=== PATIENT | male | born 1945 | race Caucasian/White ===

== ENCOUNTER → 2021-06-24 | Outpatient (CLI) | payer MEDICARE, OTHER ==
--- NOTE | 2021-06-24 17:07 | Diagnostic Imaging Report ---
INDICATION: Arthritis. COMPARISON: None. FINDINGS: Multiple radiographic views of bilateral wrists were obtained. There are moderate osteoarthritic changes to the 1st carpometacarpal joint space on the left. Note is also made of volar tilt to the lunate on the right. There is also moderate narrowing of the radiocarpal joint space on the right. AP view is suboptimal given obliquity, but there is suggestion of widening of the scapholunate joint space as well. Note is also made of underlying degenerative changes to the lunate. Otherwise, joint spaces are maintained. Osseous structures are intact. There is no acute fracture. No unexpected radiopaque foreign bodies are identified. IMPRESSION: 1. No acute fracture or dislocation of either wrist. 2. Moderate osteoarthritic changes to the left carpometacarpal joint space. 3. 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 Dictated by: Dictated on workstation # [id number]
--- NOTE | 2021-06-24 17:08 | Diagnostic Imaging Report ---
INDICATION: Arthritis. COMPARISON: None FINDINGS: Multiple radiographic views of bilateral hands were obtained. Osseous structures are intact. There is no acute fracture. Note is made of moderate osteoarthritic changes to the 1st carpometacarpal joint space. Mild to moderate osteoarthritic changes are also present involving the 2nd and 3rd metacarpophalangeal joint spaces. Otherwise, joint spaces are maintained. No periarticular erosions are seen. No other lytic or blastic bony lesions are identified. IMPRESSION: 1. No acute fracture or dislocation of either hand. 2. Moderate osteoarthritic changes of the bilateral hands as described above. Dictated by: Dictated on workstation # [id number]
== END ==
LOC: RAD 15:31
PROVIDERS: ATTEND Internal Medicine
DX: M18.0 Bilateral primary osteoarthritis of first carpometacarpal joints (principal); M19.041 Primary osteoarthritis, right hand; M19.042 Primary osteoarthritis, left hand

== ENCOUNTER → 2021-07-19 | Outpatient (CLI) | payer MEDICARE, OTHER | LOC: WOUNDCARE 12:40 | PROVIDERS: ATTEND Family Medicine | DX: S81.801A Unspecified open wound, right lower leg, initial encounter (principal) | CPT/HCPCS: 11104; G0463 ==